=== PATIENT | female | born 1980 | race Caucasian/White ===

== ENCOUNTER 2016-08-11 13:13 | Inpatient (IN) | payer OTHER ==
[2016-08-11] MEDS ORDERED: Oxytocin in LR* 20 UNITS/1,000 ML BAG IVPB ONE (21:18)
[2016-08-11 21:53] LABS: Hematocrit 43 % (35-47); Mean Corpuscular HGB Conc 33 g/dl (31-36); Mean Corpuscular Hemoglobin 29 pg (27-31); Mean Corpuscular Volume 88 fL (80-97); Mean Platelet Volume 10 um3 (7.4-10.4); Red Blood Count 4.91 10^6/ul (4.0-5.4); Red Cell Distribution Width 14 % (10.5-15); White Blood Count 20.3 10^3/ul (3.5-10.8)
[2016-08-11] MEDS ORDERED: Oxytocin in LR* 20 UNITS/1,000 ML BAG IVPB SCH (22:00)
[2016-08-11] MEDS ORDERED: OBEPIDURAL* 250 ML ONE (22:26)
[2016-08-11] MEDS ORDERED: Famotidine TAB* 20 MG PO PRN (22:51)
[2016-08-11] MEDS ORDERED: EPHEDrine (Pressors)* 50 MG/ML VIAL IV PUSH PRN (22:51)
[2016-08-11] MEDS ORDERED: Sodium Citrate/Citric Acid* 15 ML UDC PO PRN (22:51)
[2016-08-11] MEDS ORDERED: Phenylephrine IV* 40 MCG/ML 10 ML SYRINGE IV PUSH PRN (22:51)
[2016-08-11] MEDS ORDERED: OBEPIDURAL* 250 ML EPIDURAL SCH (23:00)
[2016-08-12] MEDS ORDERED: ceFOXitin 2 GM IVPREMIX* 2 GM/50 ML BAG ONE (03:01)
[2016-08-12] MEDS ORDERED: oxyCODONE/Acetamin 5/325 MG* TAB PO PRN (03:19)
[2016-08-12] MEDS ORDERED: Glycerin ADULT SUPP PR PRN (03:19)
[2016-08-12] MEDS ORDERED: Dibucaine 1% 28.35 GM TUBE PR PRN (03:19)
[2016-08-12] MEDS ORDERED: Witch Hazel PAD* JAR TOPICAL PRN (03:19)
[2016-08-12] MEDS ORDERED: ceFOXitin 2 GM IVPREMIX* 2 GM/50 ML BAG IVPB ONE (03:21)
[2016-08-12] MEDS ORDERED: fentaNYL* 50 MCG/ML 2 ML VIAL (100 MCG VIAL) ONE (03:28)
[2016-08-12] MEDS ORDERED: Ondansetron INJ* 2 MG/ML VIAL ONE (04:07)
[2016-08-12] MEDS ORDERED: OXYTOCIN* 10 UNITS/ML 1 ML VIAL ONE (04:07)
[2016-08-12] MEDS ORDERED: Chloroprocaine 3%* 20 ML VIAL ONE (04:07)
[2016-08-12] MEDS ORDERED: Phenylephrine IV* 40 MCG/ML 10 ML SYRINGE ONE (04:07)
[2016-08-12] MEDS ORDERED: Morphine PF AMP (0.5MG/ML)* 5 MG/10 ML AMP ONE (04:13)
[2016-08-12] MEDS ORDERED: fentaNYL* 50 MCG/ML 2 ML VIAL (100 MCG VIAL) IV PRN (05:04)
[2016-08-12] MEDS ORDERED: Ketorolac INJ* 30 MG/ML 1 ML VIAL IV PRN ×2 (05:04→05:06)
[2016-08-12] MEDS ORDERED: Naloxone* 2 MG in NS 0.9% 250 ML* 250 ML IV PRN (05:06)
[2016-08-12] MEDS ORDERED: Ondansetron INJ* 2 MG/ML VIAL IV PRN (05:06)
[2016-08-12] MEDS ORDERED: Nalbuphine* 20 MG/ML 1 ML VIAL IV PRN (05:06)
[2016-08-12] MEDS ORDERED: Naloxone* 0.4 MG/ML 1 ML VIAL IV PRN (05:06)
[2016-08-12] MEDS ORDERED: Ketorolac INJ* 30 MG/ML 1 ML VIAL ONE (05:23)
[2016-08-12] MEDS: Ibuprofen TAB* 600 MG PO SCH ×4 (12:38→23:36)
[2016-08-12] MEDS: Docusate CAP* 100 MG PO SCH ×3 (12:39→21:11)
[2016-08-12] MEDS: Simethicone CHEW TAB* 80 MG PO SCH ×4 (12:39→21:11)
--- NOTE | 2016-08-12 23:18 | OP ---
OPERATIVE REPORT: DATE OF OPERATION: 08/12/16 DATE OF : 82 SURGEON: Letha Soto MD PRACTICE SUPPORT SPECIALIST: GERI Stallworth ANESTHESIA: Epidural. ANESTHESIOLOGIST: Dr. Thorne. PRE-OP DIAGNOSIS: 41 plus 4 weeks gestation with arrest of dilation and category 2 heart tracing. POST-OP DIAGNOSIS: 41 plus 4 weeks gestation with arrest of dilation and category 2 heart tracing. PROCEDURE PERFORMED: Primary low transverse section. ESTIMATED BLOOD LOSS: 800 cc. URINE OUTPUT: 200 cc. IV FLUIDS: 1800 cc lactated Ringer's. MATERIAL TO LAB: Cord blood and cord gases. INDICATIONS: This patient is a 35-year-old 1, para 0 at 41 plus 4 weeks gestation, who presented during the previous day in early labor. She was a patient on the national business director service, who had declined induction of labor at 41 weeks. The patient's labor course was initially unremarkable, but when she reached about 9 cm dilation, she did not have any further cervical change. She initially declined Pitocin but then was willing to have this added for augmentation. She also then was interested in an epidural, which was given. The epidural reportedly worked well initially. At about 3 a.m., I was contacted by the patient's national business director to inform me that the patient had not had any cervical change past 9 cm and her epidural was causing unusual sensation high up in her torso to her neck. In addition, the heart tracing was starting to show variable decelerations. I was in the patient's room about 5 minutes later and at that point, the patient was only yahaira about every 6 minutes or so, but when she did have contractions there were late decelerations , which had a variable deceleration shape, but which had fairly rapid return to baseline and heart tracing baseline showed moderate variability. We discussed the patient's situation and the fact that she had not had further cervical change and that the fetus did not appear to be tolerating labor any longer. In addition, the patient's blood pressure was very low and attempts had been made to try to improve this. The anesthesiologist was contacted. I discussed with the patient and her the risks of section including bleeding, hemorrhage, transfusion, infection, organ injury, deep vein thrombosis, and hysterectomy. I recommended proceeding with section and they agreed. Consent was signed and the patient's abdomen was marked. FINDINGS: Normal-appearing uterus, fallopian tubes, and ovaries. On entry into the uterus, there was very thick meconium present. The weighed 10 pounds 0 ounces. It was a female. Apgars were 1 and 8. Time of delivery was 03:58. COMPLICATIONS: None. DESCRIPTION OF PROCEDURE: The risks, benefits, and alternatives were described to the patient and informed consent was obtained. The patient was taken to the operating room with IV running where epidural anesthesia was induced and found to be adequate. The patient was prepped and draped in the normal sterile fashion in the dorsal supine position with leftward tilt. A Pfannenstiel skin incision was made with a scalpel and this was carried down to the underlying fascia sharply. The fascia was then scored in the midline with the scalpel. The incision was extended using Peter scissors. The rectus muscles were dissected off the rectus fascia using blunt and sharp dissection. The rectus muscles were in the midline bluntly. The peritoneum was also entered bluntly. A bladder blade was placed. A bladder was fairly high on the uterus, so a bladder flap was created sharply using Metzenbaum scissors. A low transverse uterine incision was made with the scalpel. This was carried down to the amniotic cavity which was productive of very thick meconium fluid. The incision was extended with blunt traction. The head was elevated to the level of the incision without difficulty and delivered through the incision. With fundal pressure, the shoulders and body delivered without much difficulty, although the was very large. The appeared to have good tone. The cord was doubly clamped and cut. The was then handed to the awaiting broom handle dipper who was already suctioning the mouth and nose. Cord blood and gases were collected. The placenta then delivered with manual extraction. There did not appear to be any meconium staining of the membranes. The uterus was then exteriorized and cleared of all clots and debris. The uterine incision was reapproximated using 0 Polysorb in a running-locked fashion. A second layer of imbricating sutures of 0 Polysorb was also placed with good hemostasis. The uterus was then returned to the abdomen, and the incision was reinspected and noted to be hemostatic. The paracolic gutters were irrigated with saline. The peritoneum was closed with 3-0 Polysorb in a running fashion. The fascia was closed with 0 Polysorb in a running fashion. The subcutaneous tissues were irrigated with saline. The skin was then closed with 4-0 Monocryl in a subcuticular stitch. Mastisol and Steri-Strips were placed over the incision which was then covered with a sterile bandage. The patient tolerated the procedure well. Sponge, lap, and needle counts were correct x2. [id number]/[facility] #: [id number] MTDD
[2016-08-12] MEDS: oxyCODONE/Acetamin 5/325 MG* TAB PO PRN (23:37)
[2016-08-13] MEDS: oxyCODONE/Acetamin 5/325 MG* TAB PO PRN ×2 (06:05→12:40)
[2016-08-13 07:26] LABS: Hematocrit 36 % (35-47); Mean Corpuscular HGB Conc 33 g/dl (31-36); Mean Corpuscular Hemoglobin 29 pg (27-31); Mean Corpuscular Volume 88 fL (80-97); Mean Platelet Volume 10 um3 (7.4-10.4); Red Blood Count 4.12 10^6/ul (4.0-5.4); Red Cell Distribution Width 14 % (10.5-15); White Blood Count 14.4 10^3/ul (3.5-10.8)
[2016-08-13] MEDS: Simethicone CHEW TAB* 80 MG PO SCH ×2 (08:57→12:39)
[2016-08-13] MEDS: Docusate CAP* 100 MG PO SCH (08:57)
[2016-08-13] MEDS: Ibuprofen TAB* 600 MG PO SCH ×2 (10:33→10:34)
[2016-08-13 12:08] VITALS: BP 114/77
== END 2016-08-13 15:58 | disposition home or self-care (01) | DRG 766 ==
LOC: MCHOBOUT 13:13 → MCHOB 14:16
PROVIDERS: ADMIT Midwife; ATTEND Midwife
PROC: 4A1HXCZ Monitoring of Products of Conception, Cardiac Rate, External Approach (ICD-10-PCS; 2016-08-12)
PROC: 10D00Z1 Extraction of Products of Conception, Low, Open Approach (ICD-10-PCS; principal; 2016-08-12 03:33)
DX: O48.0 Post-term pregnancy (principal); O77.0 Labor and delivery complicated by meconium in amniotic fluid; O62.1 Secondary uterine inertia; O76 Abnormality in fetal heart rate and rhythm complicating labor and delivery; Z37.0 Single live birth; Z88.8 Allergy status to other drugs, medicaments and biological substances; Z3A.41 41 weeks gestation of pregnancy
CPT/HCPCS: 36415; 76815; 85025; 86850; 86900; 86901; A9270-GY; J0694; J1885; J2400; J2405; J2590; J3010

== ENCOUNTER 2018-03-08 06:10 | Inpatient (IN) | payer BC ==
[~2018-03-08 06:10] MED LIST: Buffered Lidocaine 0.9% SYRIN* 5 ML/SYR SYRINGE INTRADERM ONE; Famotidine IV* 10 MG/ML 2 ML (20 mg) IV ONE; Sodium Citrate/Citric Acid* 15 ML UDC PO ONE; ceFOXitin 2 GM IVPREMIX* 2 GM/50 ML BAG IVPB SCH
[2018-03-08] MEDS ORDERED: Lactated Ringers 1000 ML Bag* 1,000 ML IV SCH ×2 (07:00→11:00)
[2018-03-08] MEDS ORDERED: Morphine PF AMP (0.5MG/ML)* 5 MG/10 ML AMP ONE ×2 (07:35→08:35)
[2018-03-08] MEDS ORDERED: fentaNYL* 50 MCG/ML 2 ML VIAL (100 MCG VIAL) ONE ×2 (07:35→08:35)
[2018-03-08] MEDS ORDERED: Lidocaine 2% PF * 5 ML VIAL ONE ×2 (07:39→08:34)
[2018-03-08] MEDS ORDERED: Bupivacaine-MPF SPINAL* 7.5 MG/ML - 2ML AMP ONE ×2 (07:39→08:34)
[2018-03-08] MEDS ORDERED: Ondansetron INJ* 2 MG/ML VIAL ONE (07:43)
[2018-03-08] MEDS ORDERED: Phenylephrine INJ* 10 MG/ML 1 ML VIAL (10 MG) ONE (09:14)
[2018-03-08] MEDS ORDERED: Metoclopramide IV* 5 MG/ML 2 ML VIAL ONE (09:34)
[2018-03-08] MEDS ORDERED: Naloxone* 0.4 MG/ML 1 ML VIAL IV PRN ×2 (09:44→09:46)
[2018-03-08] MEDS ORDERED: Ondansetron INJ* 2 MG/ML VIAL IV PRN (09:44)
[2018-03-08] MEDS ORDERED: oxyCODONE TAB* 5 MG TAB PO PRN (09:44)
[2018-03-08] MEDS ORDERED: Acetaminophen TAB* 325 MG PO PRN (09:44)
[2018-03-08] MEDS ORDERED: oxyCODONE/Acetamin 5/325 MG* TAB PO PRN (09:44)
[2018-03-08] MEDS ORDERED: Metoclopramide IV* 5 MG/ML 2 ML VIAL IV PRN (09:44)
[2018-03-08] MEDS ORDERED: HYDROmorphone INJ1* 1 MG/ML SYRINGE IV PRN (09:46)
[2018-03-08] MEDS ORDERED: Dibucaine 1% 28.35 GM TUBE PR PRN (10:31)
[2018-03-08] MEDS ORDERED: Witch Hazel PAD* JAR TOPICAL PRN (10:31)
[2018-03-08] MEDS ORDERED: Glycerin ADULT SUPP PR PRN (10:31)
[2018-03-08] MEDS ORDERED: Oxytocin in LR* 20 UNITS/1,000 ML BAG IVPB SCH (11:00)
[2018-03-08] MEDS: Ketorolac INJ* 30 MG/ML 1 ML VIAL IV PRN ×2 (11:45→20:29)
--- NOTE | 2018-03-08 14:08 | OP ---
DATE OF OPERATION: 03/08/18 - ROOM #117 DATE OF : 82 SURGEON: Evelyne Spencer MD LAMBSKIN TRIMMER: Yoli Stallworth CNM and Daisy Meraz CNM. ANESTHESIOLOGIST: Dr. Mamie Hernández. ANESTHESIA: Spinal. PRE-OP DIAGNOSIS: Intrauterine , 39 weeks, desires a repeat section, cuboid scar formation. POST-OP DIAGNOSIS: Intrauterine 39 weeks, desires a repeat section, cuboid scar formation, delivered. OPERATIVE PROCEDURE: Repeat low transverse section, revision of old scar, and vacuum extraction of head. ESTIMATED BLOOD LOSS: 600. URINE OUTPUT: 400 cc of clear yellow urine. FLUID: 1300 cc of crystalloid. FINDINGS: Revealed a vertex female infant with Apgars 9 at 1 minute, 9 at 5 minutes. No meconium. Nuchal cord x1. Placenta manually extracted, 3-vessel cord intact. Uterine cavity without evidence of retained membranes or placental tissue. Normal appearing tubes and ovaries bilaterally. CONSULTATIONS: None apparent. DISPOSITION: Stable to recovery room. DESCRIPTION OF PROCEDURE: The patient was placed in dorsal lithotomy position. Abdomen was prepped and draped in a sterile standard fashion. Anesthesia was tested to appropriate level. The incision was made with scalpel with care to excise the old cuboid scar with the scalpel. The incision was then carried down through to the fascia. Fascia was scored in the midline, the fascial incision was extended laterally and superiorly using Peter scissors. Peritoneum was then entered bluntly. Bladder blade was inserted. Lower uterine segment was identified. Lower uterine segment was tented up with an Allis. An incision was made with scalpel. This was carried down through to membranes. Clear fluid was noted. Incision was extended laterally and superiorly using bandage scissors. The attempt was made for delivery of the head and a vacuum was then placed on the head for delivery with one pull. The vacuum was released. Nuchal cord was reduced, anterior-posterior shoulder delivered. Cord was allowed to pulse for approximately 60 seconds. The cord was then clamped and then cut. Appropriate cord blood was obtained. The was handed off to awaiting supervisor paste plant. The placenta was then manually extracted , noted to be intact and 3-vessel cord. The uterus was exteriorized, wrapped in warm moist laparotomy sponge. Normal tubes and ovaries were noted. The uterine cavity was explored and noted to be free of any membranes or placental tissue. The uterine incision itself was reapproximated using 0 Vicryl; first layer running locked, second layer running imbricated. Hemostasis was noted. Uterus was returned intraabdominally. Colic gutters were lavaged. Hemostasis was assured at the hysterotomy site again. The peritoneum was then clamped with Brenda, and after correct count the peritoneum was closed using 3-0 Vicryl in a running fashion. Subfascial area was visualized. Hemostasis assured with Bovie coagulation and the fascia was then reapproximated using 0 Vicryl x2. The fascial closure was noted to be complete. The subcutaneous tissue was lavaged. Hemostasis assured with Bovie coagulation and the skin itself was then reapproximated using 4-0 Monocryl in a subcuticular fashion. Mastisol and Steris were applied. All sponge, needle, and instrument, and blade counts were correct through out the case. The patient tolerated the procedure well and went to recovery room in stable condition. [id number]/[facility] #: [id number] MICHAELA
[2018-03-08] MEDS: Simethicone TAB* 80 MG TAB.CHEW PO SCH ×2 (15:14→20:29)
[2018-03-08] MEDS: Docusate CAP* 100 MG PO SCH ×2 (15:14→20:29)
[2018-03-09] MEDS ORDERED: oxyCODONE/Acetamin 5/325 MG* TAB PO PRN
[2018-03-09] MEDS: Ketorolac INJ* 30 MG/ML 1 ML VIAL IV PRN (02:25)
[2018-03-09] MEDS: oxyCODONE/Acetamin 5/325 MG* TAB PO PRN ×5 (04:49→23:29)
[2018-03-09 07:34] LABS: ABS Basophils 0 10^3/ul (0-0.2); ABS Eosinophils 0 10^3/ul (0-0.6); ABS Monocytes 0.6 10^3/ul (0-0.8); ABS Neutrophils 5.5 10^3/ul (1.5-7.7); ABS Nucleated RBC 0 10^3/ul; Eosinophil % 0.4 %; Hematocrit 33 % (35-47); Hemoglobin 11.1 g/dl (12.0-16.0); Lymphocyte % 24.9 %; Mean Corpuscular HGB Conc 33 g/dl (31-36); Mean Corpuscular Hemoglobin 30 pg (27-31); Mean Corpuscular Volume 90 fL (80-97); Mean Platelet Volume 8.7 fL (7.4-10.4); Nucleated Red Blood Cells % 0; Platelet Count 180 10^3/ul (150-450); Red Blood Count 3.72 10^6/ul (4.00-5.40); Red Cell Distribution Width 14 % (10.5-15); White Blood Count 8.1 10^3/ul (3.5-10.8)
[2018-03-09] MEDS ORDERED: Acetaminophen TAB* 325 MG PO PRN (08:00)
[2018-03-09] MEDS: Docusate CAP* 100 MG PO SCH ×3 (09:17→19:52)
[2018-03-09] MEDS: Simethicone TAB* 80 MG TAB.CHEW PO SCH ×5 (09:17→23:25)
[2018-03-09] MEDS: Ibuprofen TAB* 600 MG PO PRN ×3 (09:17→23:28)
[2018-03-09] MEDS: Ferrous Gluconate TAB* 324 MG TAB PO SCH (23:27)
[2018-03-10] MEDS: oxyCODONE/Acetamin 5/325 MG* TAB PO PRN ×4 (00:57→23:11)
[2018-03-10] MEDS: Ibuprofen TAB* 600 MG PO PRN ×4 (05:06→23:10)
[2018-03-10] MEDS: Simethicone TAB* 80 MG TAB.CHEW PO SCH ×4 (08:36→19:49)
[2018-03-10] MEDS: Docusate CAP* 100 MG PO SCH ×4 (08:36→19:49)
[2018-03-10] MEDS: Ferrous Gluconate TAB* 324 MG TAB PO SCH ×2 (13:19→19:46)
[2018-03-11] MEDS: Ibuprofen TAB* 600 MG PO PRN (06:52)
[2018-03-11] MEDS: oxyCODONE/Acetamin 5/325 MG* TAB PO PRN (06:53)
[2018-03-11 07:56] VITALS: BP 122/81
[2018-03-11] MEDS: Docusate CAP* 100 MG PO SCH (08:48)
[2018-03-11] MEDS: Simethicone TAB* 80 MG TAB.CHEW PO SCH (08:48)
== END 2018-03-11 10:39 | disposition home or self-care (01) | DRG 540 ==
LOC: MCHOB 06:10
PROVIDERS: ADMIT Obstetrics & Gynecology; ATTEND Obstetrics & Gynecology
PROC: 10D00Z1 Extraction of Products of Conception, Low, Open Approach (ICD-10-PCS; 2018-03-08)
PROC: 4A1HXCZ Monitoring of Products of Conception, Cardiac Rate, External Approach (ICD-10-PCS; principal; 2018-03-08 07:45)
DX: O34.211 Maternal care for low transverse scar from previous cesarean delivery (principal); O48.0 Post-term pregnancy; O69.81X0 Labor and delivery complicated by cord around neck, without compression, not applicable or unspecified; Z3A.40 40 weeks gestation of pregnancy; Z37.0 Single live birth
CPT/HCPCS: 36415; 85025; A9270-GY; J0694; J1885; J2405; J2765; J3010